=== PATIENT | female | born 1930 | race African-American/Black ===

== ENCOUNTER 2018-11-22 09:26 | Inpatient (IN) | payer MEDICARE, OTHER ==
[~2018-11-22] VITALS: Ht 149.9 cm; Wt 62.1 kg
[~2018-11-22 09:26] MED LIST: ACET1TAB14 PO; AMLO5TAB4 PO; CLON0.1T14 PO; POLY17PO3 PO; RANI300T7 PO; VALS320T2 PO
[2018-11-22] MEDS ORDERED: ACETAMINOPHEN 325MG TABLET PO ONE (10:30)
[2018-11-22 12:35] LABS: HEMOGLOBIN. 9.5 g/dL (12.0-16.0); MEAN CORPUSCULAR HEMOGLOBIN 27.7 pg (28.0-32.0); MEAN CORPUSCULAR VOLUME 84.4 fL (81.0-99.0); MEAN PLATELET VOLUME 8.2 fl (7.4-10.4); PLATELET 268 x1000/uL (130-400); RED BLOOD CELL COUNT 3.44 mill/uL (4.2-5.4); RED CELL DISTRIBUTION WIDTH 13.8 % (11.6-14.6)
[2018-11-22 12:40] LABS: CHLORIDE 104 mEq/L (98-107)
[2018-11-22 12:43] LABS: INR 1.1; PARTIAL THROMBOPLASTIN TIME 26.8 sec (23.4-31.0); PROTHROMBIN TIME 10.6 sec (9.1-11.1)
[2018-11-22] MEDS ORDERED: HYDROCODONE/ACETAMINOPHEN 5/325MG TABLET PO ONE (13:00)
[2018-11-22 13:16] LABS: PLATELET ESTIMATE NORMAL
[2018-11-22] MEDS ORDERED: HYDRALAZINE 20MG/ML VIAL IV ONE (15:45)
[2018-11-22] MEDS ORDERED: IPRATROPIUM/ALBUTEROL 0.5-3(2.5)MG/3ML NEB INH PRN (15:45)
[2018-11-22 16:00] VITALS: BP 109/76
[2018-11-22] MEDS ORDERED: IRBE300T18 MT (16:28)
[2018-11-22] MEDS ORDERED: CLON0.2T MT (16:28)
[2018-11-22] MEDS ORDERED: CHOL500063 MT (16:28)
[2018-11-22] MEDS ORDERED: HYDR-4005 MT (16:28)
[2018-11-22] MEDS ORDERED: QUET25TA34 MT (16:28)
[2018-11-22] MEDS ORDERED: RANI150C12 PO (16:28)
[2018-11-22] MEDS ORDERED: HYDR-4133 MT (16:28)
[2018-11-22] MEDS ORDERED: COR12 MT (16:28)
[2018-11-22 16:37] VITALS: BP 109/76
[2018-11-22] MEDS: HYDROCODONE/ACETAMINOPHEN 5/325MG TABLET PO PRN ×2 (17:08→21:11)
[2018-11-22 20:00] VITALS: BP 168/79
[2018-11-22 21:23] LABS: PHOSPHORUS 2.8 mg/dL (2.5-4.9)
[2018-11-23] VITALS (7 sets, daily range): BP systolic 165–201; BP diastolic 66–94
[2018-11-23] MEDS: HYDROCODONE/ACETAMINOPHEN 5/325MG TABLET PO PRN ×4 (01:12→19:57)
[2018-11-23] MEDS: AMLODIPINE 5MG TABLET PO SCH (08:53)
[2018-11-23 09:06] LABS: BASOPHILS % 0.3 % (0.0-2.0); HEMOGLOBIN. 10.2 g/dL (12.0-16.0); LYMPHOCYTES % 12.3 % (20.0-50.0); MEAN CORPUSCULAR HEMOGLOBIN 27.8 pg (28.0-32.0); MEAN CORPUSCULAR VOLUME 84.6 fL (81.0-99.0); MEAN PLATELET VOLUME 8.2 fl (7.4-10.4); MONOCYTES % 4.2 % (2.0-8.0); NEUTROPHILS % 83.2 % (40.0-76.0); PLATELET 283 x1000/uL (130-400); RED BLOOD CELL COUNT 3.67 mill/uL (4.2-5.4); RED CELL DISTRIBUTION WIDTH 13.7 % (11.6-14.6)
[2018-11-23 09:13] LABS: CHLORIDE 102 mEq/L (98-107)
[2018-11-23 09:21] LABS: LDL CHOLESTEROL 170 mg/dL (5-100)
[2018-11-23 09:22] LABS: HDL CHOLESTEROL 60 mg/dL (40-59)
[2018-11-23] MEDS: CLONIDINE 0.1MG TABLET PO PRN ×2 (09:49→22:28)
[2018-11-23 12:10] LABS: CREATINE KINASE MB FRACTION 10.2 ng/mL (0.5-3.6)
[2018-11-23] MEDS ORDERED: METOPROLOL TARTRATE 25MG TABLET PO SCH (13:15)
[2018-11-23] MEDS ORDERED: ENALAPRIL 2.5MG/2ML VIAL 2ML IV PRN (13:15)
[2018-11-23] MEDS: ENOXAPARIN 80MG/0.8ML SYR SUBCUT SCH (13:47)
[2018-11-23] MEDS: ASPIRIN 81MG EC TABLET PO SCH (13:47)
[2018-11-23] MEDS ORDERED: HYDRALAZINE 20MG/ML VIAL IV NR (18:00)
[2018-11-23] MEDS: ATORVASTATIN CALCIUM 10MG TABLET PO SCH (20:15)
[2018-11-23] MEDS: METOPROLOL TARTRATE 25MG TABLET PO SCH (20:15)
[2018-11-24] VITALS (10 sets, daily range): BP systolic 142–189; BP diastolic 61–139
[2018-11-24] MEDS: DIPHENHYDRAMINE 50MG/ML VIAL IV PRN ×2 (00:24→12:49)
[2018-11-24] MEDS: CLONIDINE 0.2MG TABLET PO PRN ×2 (02:01→09:33)
[2018-11-24 09:12] LABS: BASOPHILS % 0.6 % (0.0-2.0); EOSINOPHILS % 0.3 % (0.0-5.0); HEMATOCRIT. 32.6 % (36.0-48.0); HEMOGLOBIN. 10.6 g/dL (12.0-16.0); LYMPHOCYTES % 14.3 % (20.0-50.0); MEAN CORPUSCULAR HEMOGLOBIN 27.4 pg (28.0-32.0); MEAN CORPUSCULAR VOLUME 84.1 fL (81.0-99.0); MEAN PLATELET VOLUME 8.5 fl (7.4-10.4); MONOCYTES % 8.3 % (2.0-8.0); NEUTROPHILS % 76.5 % (40.0-76.0); PLATELET 276 x1000/uL (130-400); RED BLOOD CELL COUNT 3.87 mill/uL (4.2-5.4); RED CELL DISTRIBUTION WIDTH 13.7 % (11.6-14.6)
[2018-11-24] MEDS: HYDROCODONE/ACETAMINOPHEN 5/325MG TABLET PO PRN ×2 (09:30→16:00)
[2018-11-24] MEDS: ASPIRIN 81MG EC TABLET PO SCH (09:31)
[2018-11-24] MEDS: AMLODIPINE 5MG TABLET PO SCH ×2 (09:31→21:00)
[2018-11-24] MEDS: METOPROLOL TARTRATE 25MG TABLET PO SCH ×2 (09:32→20:59)
[2018-11-24] MEDS: ENOXAPARIN 80MG/0.8ML SYR SUBCUT SCH (09:34)
[2018-11-24] MEDS: MINOXIDIL 2.5MG TABLET PO SCH ×2 (15:47→20:59)
[2018-11-24] MEDS: ATORVASTATIN CALCIUM 10MG TABLET PO SCH (20:59)
[2018-11-25] VITALS (11 sets, daily range): BP systolic 116–181; BP diastolic 69–94
[2018-11-25] MEDS: CLONIDINE 0.2MG TABLET PO PRN ×3 (01:22→20:52)
[2018-11-25] MEDS: HYDROCODONE/ACETAMINOPHEN 5/325MG TABLET PO PRN ×2 (04:16→09:51)
[2018-11-25] MEDS: CLONIDINE 0.1MG TABLET PO SCH ×2 (06:00→13:54)
[2018-11-25] MEDS: ONDANSETRON HCL 4MG/2ML INJ IV PRN ×2 (06:03→13:53)
[2018-11-25 07:50] LABS: BASOPHILS % 0.5 % (0.0-2.0); EOSINOPHILS % 0.3 % (0.0-5.0); HEMATOCRIT. 33.3 % (36.0-48.0); HEMOGLOBIN. 10.9 g/dL (12.0-16.0); LYMPHOCYTES % 7.9 % (20.0-50.0); MEAN CORPUSCULAR HEMOGLOBIN 27.5 pg (28.0-32.0); MEAN PLATELET VOLUME 8.6 fl (7.4-10.4); MONOCYTES % 5.9 % (2.0-8.0); NEUTROPHILS % 85.4 % (40.0-76.0); PLATELET 294 x1000/uL (130-400); RED BLOOD CELL COUNT 3.97 mill/uL (4.2-5.4); RED CELL DISTRIBUTION WIDTH 13.7 % (11.6-14.6)
[2018-11-25] MEDS: MINOXIDIL 2.5MG TABLET PO SCH ×2 (09:18→18:42)
[2018-11-25] MEDS: METOPROLOL TARTRATE 25MG TABLET PO SCH ×2 (09:18→20:53)
[2018-11-25] MEDS: ASPIRIN 81MG EC TABLET PO SCH (09:18)
[2018-11-25] MEDS: AMLODIPINE 5MG TABLET PO SCH ×2 (09:18→20:52)
[2018-11-25] MEDS: ENOXAPARIN 80MG/0.8ML SYR SUBCUT SCH (09:20)
[2018-11-25] MEDS: ATORVASTATIN CALCIUM 10MG TABLET PO SCH (20:51)
[2018-11-26] VITALS (11 sets, daily range): BP systolic 90–127; BP diastolic 41–68
[2018-11-26] MEDS: CLONIDINE 0.1MG TABLET PO SCH ×3 (06:00→21:28)
[2018-11-26 06:33] LABS: BASOPHILS % 0.1 % (0.0-2.0); HEMATOCRIT. 34.7 % (36.0-48.0); HEMOGLOBIN. 11.1 g/dL (12.0-16.0); MEAN CORPUSCULAR HEMOGLOBIN 26.9 pg (28.0-32.0); MEAN CORPUSCULAR VOLUME 83.7 fL (81.0-99.0); MEAN PLATELET VOLUME 8.7 fl (7.4-10.4); MONOCYTES % 8.2 % (2.0-8.0); NEUTROPHILS % 83.7 % (40.0-76.0); PLATELET 376 x1000/uL (130-400); RED BLOOD CELL COUNT 4.15 mill/uL (4.2-5.4); RED CELL DISTRIBUTION WIDTH 13.8 % (11.6-14.6)
[2018-11-26] MEDS: MINOXIDIL 2.5MG TABLET PO SCH ×2 (09:00→17:00)
[2018-11-26] MEDS: AMLODIPINE 5MG TABLET PO SCH ×2 (09:00→21:00)
[2018-11-26] MEDS: METOPROLOL TARTRATE 25MG TABLET PO SCH ×2 (09:00→21:00)
[2018-11-26] MEDS: ASPIRIN 81MG EC TABLET PO SCH (10:47)
[2018-11-26] MEDS: ENOXAPARIN 80MG/0.8ML SYR SUBCUT SCH (10:48)
[2018-11-26] MEDS: SODIUM CHLORIDE 0.45% 1,000 ML IV SCH (14:23)
[2018-11-26] MEDS: BACLOFEN 10MG TABLET PO SCH ×2 (18:30→21:26)
[2018-11-26] MEDS: ATORVASTATIN CALCIUM 10MG TABLET PO SCH (21:27)
[2018-11-27] VITALS (76 sets, daily range): BP systolic 67–124; BP diastolic 27–96
[2018-11-27] MEDS: SODIUM CHLORIDE 0.45% 1,000 ML IV SCH ×2 (00:59→11:40)
[2018-11-27] MEDS: DIPHENHYDRAMINE 50MG/ML VIAL IV PRN (04:39)
[2018-11-27] MEDS: CLONIDINE 0.1MG TABLET PO SCH (05:17)
[2018-11-27] MEDS: BACLOFEN 10MG TABLET PO SCH (05:23)
[2018-11-27 06:42] LABS: HEMATOCRIT. 31.2 % (36.0-48.0); HEMOGLOBIN. 10.1 g/dL (12.0-16.0); MEAN CORPUSCULAR VOLUME 83.4 fL (81.0-99.0); PLATELET 363 x1000/uL (130-400); RED BLOOD CELL COUNT 3.75 mill/uL (4.2-5.4); RED CELL DISTRIBUTION WIDTH 13.7 % (11.6-14.6)
[2018-11-27] MEDS ORDERED: DIGOXIN 500MCG/2ML AMP IV NR ×2 (07:30→08:45)
[2018-11-27] MEDS ORDERED: SODIUM CHLORIDE 0.9% 250 ML IV NR ×2 (07:30→08:45)
[2018-11-27] MEDS: ASPIRIN 81MG EC TABLET PO SCH (09:00)
[2018-11-27] MEDS: MINOXIDIL 2.5MG TABLET PO SCH (09:00)
[2018-11-27] MEDS: AMLODIPINE 5MG TABLET PO SCH (09:00)
[2018-11-27] MEDS: METOPROLOL TARTRATE 25MG TABLET PO SCH (09:00)
[2018-11-27] MEDS ORDERED: AMIODARONE HCL 900 MG in DEXT 5% WATER 482 ML IV PRN (09:30)
[2018-11-27] MEDS ORDERED: ALBUMIN HUMAN 25GM/500ML (5%) IV PRN (10:45)
[2018-11-27 12:31] LABS: CLARITY URINE TURBID (CLEAR); COLOR URINE YELLOW (YELLOW); KETONES URINE TRACE (NEGATIVE); LEUKOCYTE ESTERASE URINE 3+ (NEGATIVE); NITRITE URINE NEGATIVE (NEGATIVE); OCCULT BLOOD URINE 1+ (NEGATIVE); PROTEIN URINE 1+ (NEGATIVE); SPECIFIC GRAVITY URINE 1.016 (1.005-1.030); UROBILINOGEN URINE 0.2 E.U./dL (0.2-1.0)
[2018-11-27] MEDS: ENOXAPARIN 80MG/0.8ML SYR SUBCUT SCH (13:03)
[2018-11-27 17:12] LABS: PLATELET ESTIMATE NORMAL
[2018-11-27] MEDS: CEFTRIAXONE 1 G PREMIX 50 ML IV SCH (18:51)
[2018-11-27] MEDS: ATORVASTATIN CALCIUM 10MG TABLET PO SCH (20:28)
[2018-11-28] VITALS (96 sets, daily range): BP systolic 59–143; BP diastolic 25–94
[2018-11-28] MEDS: SODIUM CHLORIDE 0.45% 1,000 ML IV SCH (02:03)
[2018-11-28 08:49] LABS: HEMATOCRIT. 22.8 % (36.0-48.0); MEAN CORPUSCULAR HEMOGLOBIN 26.9 pg (28.0-32.0); MEAN CORPUSCULAR VOLUME 86.3 fL (81.0-99.0); PLATELET 298 x1000/uL (130-400); RED BLOOD CELL COUNT 2.64 mill/uL (4.2-5.4); RED CELL DISTRIBUTION WIDTH 14.1 % (11.6-14.6)
[2018-11-28 08:51] LABS: HEMOGLOBIN. 7.1 g/dL (12.0-16.0)
[2018-11-28] MEDS: ASPIRIN 81MG EC TABLET PO SCH (09:00)
[2018-11-28] MEDS ORDERED: AMIODARONE HCL 150 MG in DEXT 5% WATER 100 ML IV NR (10:00)
[2018-11-28] MEDS: ENOXAPARIN 80MG/0.8ML SYR SUBCUT SCH (10:03)
[2018-11-28 10:06] LABS: PLATELET ESTIMATE NORMAL
[2018-11-28] MEDS ORDERED: AMIODARONE HCL 900 MG in DEXT 5% WATER 482 ML IV PRN (11:00)
[2018-11-28] MEDS: CEFTRIAXONE 1 G PREMIX 50 ML IV SCH (17:15)
[2018-11-28] MEDS: ATORVASTATIN CALCIUM 10MG TABLET PO SCH (21:00)
[2018-11-29] VITALS (60 sets, daily range): BP systolic 88–160; BP diastolic 40–91
[2018-11-29 00:23] LABS: HEMATOCRIT. 23.7 % (36.0-48.0); HEMOGLOBIN. 7.7 g/dL (12.0-16.0); MEAN CORPUSCULAR HEMOGLOBIN 27.9 pg (28.0-32.0); MEAN CORPUSCULAR VOLUME 85.7 fL (81.0-99.0); MEAN PLATELET VOLUME 8.9 fl (7.4-10.4); PLATELET 258 x1000/uL (130-400); RED BLOOD CELL COUNT 2.76 mill/uL (4.2-5.4); RED CELL DISTRIBUTION WIDTH 13.9 % (11.6-14.6)
[2018-11-29 00:57] LABS: PLATELET ESTIMATE NORMAL
[2018-11-29 07:28] LABS: HEMATOCRIT. 22.1 % (36.0-48.0); HEMOGLOBIN. 7.2 g/dL (12.0-16.0); MEAN CORPUSCULAR HEMOGLOBIN 27.9 pg (28.0-32.0); MEAN CORPUSCULAR VOLUME 85.9 fL (81.0-99.0); MEAN PLATELET VOLUME 9.7 fl (7.4-10.4); PLATELET 214 x1000/uL (130-400); RED BLOOD CELL COUNT 2.57 mill/uL (4.2-5.4)
[2018-11-29] MEDS: SODIUM CHLORIDE 0.45% 1,000 ML IV SCH (08:53)
[2018-11-29 09:50] LABS: PLATELET ESTIMATE NORMAL
[2018-11-29] MEDS ORDERED: MEROPENEM 500 MG in SODIUM CHLORIDE 0.9% 50 ML IV SCH (10:00)
[2018-11-29] MEDS: MORPHINE SULFATE 4 MG/ML CPJ (NOT FOR IM USE) IV PRN ×2 (18:37→23:24)
[2018-11-30] VITALS: BP 109/53
[2018-11-30 04:00] VITALS: BP 123/62
[2018-11-30] MEDS: MORPHINE SULFATE 4 MG/ML CPJ (NOT FOR IM USE) IV PRN ×2 (05:23→09:59)
[2018-11-30 08:00] VITALS: BP 100/60
[2018-11-30] MEDS: MORPHINE SULFATE 250 MG in DEXT 5% WATER 240 ML IV PRN (11:59)
[2018-11-30 12:11] VITALS: BP 126/52
[2018-11-30 15:48] VITALS: BP 105/65
[2018-11-30 20:00] VITALS: BP 104/49
[2018-12-01] VITALS: BP 117/61
[2018-12-01 04:00] VITALS: BP 117/64
[2018-12-01 08:00] VITALS: BP 102/64
[2018-12-01 12:00] VITALS: BP 127/52
[2018-12-01 16:00] VITALS: BP 126/62
[2018-12-01 20:00] VITALS: BP 117/67
[2018-12-02] VITALS: BP 120/56
[2018-12-02 04:00] VITALS: BP 118/43
[2018-12-02 08:21] VITALS: BP 91/36
[2018-12-02 11:49] VITALS: BP 96/36
[2018-12-02 16:18] VITALS: BP 108/30
[2018-12-02] MEDS: MORPHINE SULFATE 250 MG in DEXT 5% WATER 240 ML IV PRN (19:04)
[2018-12-02 20:00] VITALS: BP 101/28
[2018-12-03] VITALS: BP 146/33
[2018-12-03 04:00] VITALS: BP 103/33
[2018-12-03 08:00] VITALS: BP 106/22
[2018-12-03 12:00] VITALS: BP 97/23
[2018-12-03 13:15] VITALS: BP 97/23
== END 2018-12-03 15:38 | disposition hospice, home (50) | DRG 871 ==
LOC: ER 10:00 → 5WST 12:25 → ENRESERV 13:49 → 5EST 11-23 22:08 → MICUSO 11-27 07:26 → 6EST 11-29 17:12 → 3WST 11-30 12:33 → 6EST 11-30 12:34
PROVIDERS: ADMIT Internal Medicine; ATTEND Internal Medicine
PROC: 02HV33Z Insertion of Infusion Device into Superior Vena Cava, Percutaneous Approach (ICD-10-PCS; 2018-11-27)
PROC: B548ZZA Ultrasonography of Superior Vena Cava, Guidance (ICD-10-PCS; 2018-11-27)
PROC: 30233N1 Transfusion of Nonautologous Red Blood Cells into Peripheral Vein, Percutaneous Approach (ICD-10-PCS; principal; 2018-11-28)
DX: A41.9 Sepsis, unspecified organism (principal); N17.0 Acute kidney failure with tubular necrosis; R65.21 Severe sepsis with septic shock; I21.4 Non-ST elevation (NSTEMI) myocardial infarction; E44.0 Moderate protein-calorie malnutrition; N39.0 Urinary tract infection, site not specified; M62.82 Rhabdomyolysis; G93.40 Encephalopathy, unspecified; F05 Delirium due to known physiological condition; I47.1 Supraventricular tachycardia; I48.92 Unspecified atrial flutter; E11.65 Type 2 diabetes mellitus with hyperglycemia; F03.90 Unspecified dementia, unspecified severity, without behavioral disturbance, psychotic disturbance, mood disturbance, and anxiety; D64.9 Anemia, unspecified; E78.5 Hyperlipidemia, unspecified; I11.0 Hypertensive heart disease with heart failure; I27.20 Pulmonary hypertension, unspecified; I34.0 Nonrheumatic mitral (valve) insufficiency; I48.91 Unspecified atrial fibrillation; M25.511 Pain in right shoulder; M54.2 Cervicalgia; I50.9 Heart failure, unspecified; B96.4 Proteus (mirabilis) (morganii) as the cause of diseases classified elsewhere; G90.9 Disorder of the autonomic nervous system, unspecified; S09.90XA Unspecified injury of head, initial encounter; H57.89 Other specified disorders of eye and adnexa; W19.XXXA Unspecified fall, initial encounter; K21.9 Gastro-esophageal reflux disease without esophagitis; M47.9 Spondylosis, unspecified; Z66 Do not resuscitate; Z51.5 Encounter for palliative care; I25.2 Old myocardial infarction; Z90.49 Acquired absence of other specified parts of digestive tract; Z79.84 Long term (current) use of oral hypoglycemic drugs; Z88.2 Allergy status to sulfonamides; Z88.8 Allergy status to other drugs, medicaments and biological substances; Z79.1 Long term (current) use of non-steroidal anti-inflammatories (NSAID); Z79.899 Other long term (current) drug therapy; Z85.3 Personal history of malignant neoplasm of breast; Y93.89 Activity, other specified; Y99.8 Other external cause status; Y92.009 Unspecified place in unspecified non-institutional (private) residence as the place of occurrence of the external cause; Z68.27 Body mass index [BMI] 27.0-27.9, adult
CPT/HCPCS: 36415; 36569; 71045; 72170; 73030; 76770; 76937; 80048; 80061; 82270; 82550; 82553; 83036; 83605; 83735; 83880; 84100; 84145; 84443; 84484; 86850; 86900; 86920; 87077; 87186; 92610; 93005; 93306; 93970; 96374; 97166; 97535; 99285; A6261; C1725; J0282; J0360; J0696; J1160; J1200; J1650; J2185; J2270; J2274; J2405; J7060; P9016